=== PATIENT | male | born 1990 | race Caucasian/White ===

== ENCOUNTER → 2018-06-03 15:46 | Outpatient (CLI) | payer OTHER, SELFPAY ==
[2018-06-03 18:04] LABS: Thyroid Stim Hormone (TSH) 1.94 uIU/mL (0.358-3.74)
== END ==
PROVIDERS: Family Provider Family Medicine; PCP Family Medicine; Referring Provider Family Medicine; Visit Provider Family Medicine
DX: Z13.31 Encounter for screening for depression (principal)
CPT/HCPCS: 36415; 84443